=== PATIENT | female | born 1960 | race Caucasian/White ===

== ENCOUNTER 2021-04-20 15:08 | Emergency (ER) | payer SELFPAY ==
[2021-04-20 15:42] VITALS: BP 145/90; PULSE 86; TEMP 98.6; BMI 21.4
== END 2021-04-20 18:09 | disposition home or self-care (01) ==
LOC: JER 15:08
DX: Z04.3 Encounter for examination and observation following other accident (principal)
CPT/HCPCS: 71046-TC-FY; 71101-TC-LT-FY; 73030-TC-LT-FY; 73060-TC-LT-FY; 73070-TC-LT-FY; 73090-TC-LT-FY; 73523-TC-FY; 73552-TC-LT-FY; 73562-TC-LT-FY; 99284-25